=== PATIENT | female | born 1965 | race Caucasian/White ===

== ENCOUNTER 2016-08-01 16:13 | Emergency (ER) | payer OTHER | END 2016-08-01 16:35 | disposition home or self-care (01) | LOC: ER 16:13 | DX: J44.9 Chronic obstructive pulmonary disease, unspecified (principal); R06.2 Wheezing; I10 Essential (primary) hypertension; F17.210 Nicotine dependence, cigarettes, uncomplicated; Z79.899 Other long term (current) drug therapy; Z88.2 Allergy status to sulfonamides | CPT/HCPCS: 99282 ==

== ENCOUNTER 2016-08-11 12:14 | Emergency (ER) | payer OTHER ==
[2016-08-11 13:29] LABS: BASO % 0.6 % (0.1-1.2); EOS # 0.2 10_X3_uL (0.0-0.4); EOS % 2.7 % (0.7-5.8); GRAN # 4.3 10_X3_uL (1.6-6.1); GRAN % 61.7 % (34.0-71.1); HEMATOCRIT 41.8 % (34-45); HEMOGLOBIN 13.4 g/dL (11.2-15.7); LYMPH % 28.4 % (19.3-51.7); MEAN CORPUSCULAR HEMOGLOBIN 29.3 pg (27.0-33.0); MEAN CORPUSCULAR HGB CONC 32.1 g/dL (32.0-36.0); MEAN CORPUSCULAR VOLUME 91.5 fL (79-95); MEAN PLATELET VOLUME 9.7 fl (7.5-11.5); MONO # 0.5 10_X3_uL (0.2-0.9); MONO % 6.6 % (4.7-12.5); PLATELET COUNT 273 x10_3/uL (182-369); RED BLOOD COUNT 4.57 x10_6/uL (3.9-5.2); RED CELL DISTRIBUTION WIDTH 14.9 % (11.7-14.4)
[2016-08-11 13:41] LABS: ALBUMIN 4.1 gm/dL (3.4-5.0); ALKALINE PHOSPHATASE 65 U/L (50-136); ALT/SGPT 13 U/L (3.5-33.9); AST/SGOT 15 U/L (7.04-26.96); BLOOD UREA NITROGEN 18 mg/dL (7-18); CALCIUM 9.3 mg/dL (8.7-10.7); CARBON DIOXIDE 24 mmol/L (21-32); CREATINE KINASE 39 U/L (21-215); CREATININE 0.5 mg/dL (0.6-1.3); GLUCOSE,RANDOM 152 mg/dL (70-99); POTASSIUM 3.8 mmol/L (3.5-5.1); SODIUM 141 mmol/L (136-145); TOTAL PROTEIN 6.8 gm/dL (6.4-8.2)
== END 2016-08-11 14:34 | disposition home or self-care (01) ==
LOC: ER 12:14
PROVIDERS: Emergency Medicine
DX: J20.9 Acute bronchitis, unspecified (principal); R07.89 Other chest pain; I10 Essential (primary) hypertension; Z88.2 Allergy status to sulfonamides; Z79.899 Other long term (current) drug therapy
CPT/HCPCS: 36415; 71020; 80053; 82550; 82553; 83880; 85025; 93005; 94664; 96372; 99283-25; J2930